=== PATIENT | female | born 1940 | race African-American/Black ===

== ENCOUNTER 2025-02-11 06:18 | Day surgery (SDC) | payer OTHER, MEDICARE ==
[2025-02-09 18:30] VITALS: BMI 30.2
[2025-02-11] MEDS ORDERED: MIDAZOLAM HCL 2 MG/2 ML SINGLE DOSE VIAL ONE ×2 (07:16→10:05)
[2025-02-11] MEDS ORDERED: PROPOFOL 80 ML ONE (07:16)
[2025-02-11] MEDS ORDERED: VANCOMYCIN 1,000 MG VIAL (RESTRICTED TO ID ONLY) ONE (07:23)
[2025-02-11] MEDS ORDERED: KETOROLAC TROMETHAMINE 60 MG/2 ML VIAL ONE (07:24)
[2025-02-11] MEDS ORDERED: BUPIVACAINE HCL/PF 2.5 MG/ML - 30 ML VIAL IJ ONE ×2 (07:25→07:43)
[2025-02-11] MEDS ORDERED: ONDANSETRON 4 MG/2 ML VIAL IVPUSH PRN ×2 (07:32→10:51)
[2025-02-11] MEDS ORDERED: BUPIVACAINE HCL/PF 0.5% (5MG/ML) 10 ML VIAL ONE (07:43)
[2025-02-11] MEDS ORDERED: ROPIVACAINE HCL/PF 100 MG/20 ML VIAL ONE (07:43)
[2025-02-11] MEDS ORDERED: ROCURONIUM BROMIDE 50 MG/5 ML SYRINGE ONE (08:36)
[2025-02-11] MEDS: BUPIVACAINE HCL/PF 0.25% (2.5MG/ML) 10 ML VIAL IJ ONE ×2 (10:20)
[2025-02-11] MEDS: KETOROLAC TROMETHAMINE 30 MG/1 ML VIAL IM ONE ×2 (10:20)
[2025-02-11] MEDS: VANCOMYCIN 1,000 MG VIAL (RESTRICTED TO ID ONLY) IVPB ONE ×4 (10:29→10:41)
[2025-02-11] MEDS ORDERED: MAG HYDROX/AL HYDROX/SIMETH 30 ML UNIT-DOSE CUP PO PRN (10:51)
[2025-02-11] MEDS ORDERED: MAGNESIUM HYDROX 2400MG/30ML ORAL SUSPENSION 30 ML CUP PO PRN (10:51)
[2025-02-11] MEDS ORDERED: AMIODARONE HCL 200 MG TABLET PO SCH (11:00)
[2025-02-11] MEDS ORDERED: oxyCODONE HCL 5 MG TABLET PO PRN (11:39)
[2025-02-11] MEDS: ACETAMINOPHEN 1000 MG/100 ML BAG IVPB SCH (15:19)
[2025-02-11] MEDS: LACTATED RINGERS SOLUTION 1,000 ML IV SCH (15:19)
[2025-02-11] MEDS: CEFAZOLIN 2 GM/D5W 2 GRAM/50 ML ML IVPB SCH (16:59)
[2025-02-11] MEDS: oxyCODONE HCL 5 MG TABLET PO PRN (17:08)
[2025-02-11] MEDS: ATORVASTATIN CA 20 MG TABLET (FP) PO SCH (21:15)
[2025-02-11] MEDS: SENNOSIDES/DOCUSATE COMBO (SENNA PLUS) TABLET (UD) PO SCH (21:15)
[2025-02-11] MEDS: ASPIRIN 81 MG CHEWABLE TABLETS PO SCH (21:16)
[2025-02-11] MEDS: FAMOTIDINE 20 MG TABLET PO SCH (21:16)
[2025-02-12 06:53] VITALS: RESP 18
[2025-02-12 07:55] LABS: HEMATOCRIT 33.9 % (34.1-44.9); HEMOGLOBIN 11.1 g/dL (11.2-15.7); MCHC 32.7 g/dl (32.2-35.5); MEAN CELL VOLUME 90.9 fl (79.4-94.8); MEAN PLT VOLUME 11.4 fl (9.4-12.3); PLATELET COUNT 198 x10^3/uL (182-369); RDW 12.5 % (12.5-17.0)
[2025-02-12 08:28] LABS: CALCIUM 9.2 mg/dl (8.5-10.1); POTASSIUM 4.6 mmol/L (3.5-5.1)
[2025-02-12] MEDS: amLODIPine BESYLATE 2.5 MG TABLET (FP) PO SCH (09:08)
[2025-02-12] MEDS: MULTIVITAMINS (DAILY MVI) TABLET (FP) PO SCH (09:08)
[2025-02-12] MEDS: CARVEDILOL 12.5 MG TABLET (FP) PO ONE (09:09)
[2025-02-12] MEDS: AMIODARONE HCL 200 MG TABLET PO SCH (09:09)
[2025-02-12] MEDS ORDERED: amLODIPine BESYLATE 2.5 MG TABLET (FP) PO SCH (10:00)
[2025-02-12] MEDS ORDERED: CARVEDILOL 12.5 MG TABLET (FP) PO SCH (10:00)
[2025-02-12 14:34] VITALS: BP 127/58; PULSE 64; TEMP 98.4
== END 2025-02-12 16:30 | disposition home health service (06) ==
LOC: FASUSAT 06:18 → FM/S 12:46 → FASUSAT 02-12 16:30
PROC: 8E0Y0CZ Robotic Assisted Procedure of Lower Extremity, Open Approach (ICD-10-PCS; 2025-02-11)
PROC: 0SRD0J9 Replacement of Left Knee Joint with Synthetic Substitute, Cemented, Open Approach (ICD-10-PCS; principal; 2025-02-11 08:50)
DX: M17.12 Unilateral primary osteoarthritis, left knee (principal)
CPT/HCPCS: 20985; 27447; C1776; S2900; 36415; 73560-TC-LT-FY; 80048; 82962; 85027; 94760; 97010-GP; 97116-GP; 97162-GP; J0131